=== PATIENT | female | born 1955 | race African-American/Black ===

== ENCOUNTER 2024-01-16 07:14 | Observation (INO) | payer MEDICARE ==
[~2024-01-16] VITALS: Ht 170.2 cm; Wt 79.4 kg
[2024-01-16] MEDS ORDERED: SODIUM CHLORIDE FLUSH 10 ML SYR IV PRN (07:30)
[2024-01-16] MEDS: ASPIRIN 81 MG CHEW TAB PO ONE ×2 (07:51→12:14)
[2024-01-16] MEDS: ONDANSETRON HCL INJ 2MG/ML 2ML 2 MG/ML VIAL IV STA (07:58)
[2024-01-16 08:09] LABS: BASOPHILS # (AUTO) 0.1 (0.0-0.1); BASOPHILS % 0.8 % (0.0-1.0); EOSINOPHILS # (AUTO) 0.1 (0.0-0.4); EOSINOPHILS % 1.4 % (0.0-6.0); HEMATOCRIT 43.5 % (34.2-44.1); HEMOGLOBIN 13.6 g/dL (12.0-16.0); LYMPHOCYTES # (AUTO) 1.5 (1.0-3.2); MEAN CORPUSCULAR HEMOGLOBIN 23.4 pg (28-32); MEAN CORPUSCULAR HGB CONC 31.3 g/dL (31-35); MEAN CORPUSCULAR VOLUME 74.9 fL (81-99); MONOCYTES # (AUTO) 0.4 (0.2-0.8); MONOCYTES % 6.1 % (4.4-11.3); NEUTROPHILS # (AUTO) 4.3 (2.1-6.9); NEUTROPHILS % 67.2 % (38.7-80.0); PLATELET COUNT 258 x10e3/uL (140-360); RED BLOOD COUNT 5.81 x10e6/uL (3.6-5.1); RED CELL DISTRIBUTION WIDTH 17.2 % (11.7-14.4); WHITE BLOOD COUNT 6.41 x10e3/uL (4.8-10.8)
[2024-01-16 08:48] LABS: ALBUMIN 4.1 g/dL (3.5-5.0); ALBUMIN/GLOBULIN RATIO 1.2 (0.8-2.0); ANION GAP 20.3 mmol/L (8-16); BILIRUBIN,TOTAL 0.3 mg/dL (0.2-1.2); CALCIUM 9.8 mg/dL (8.4-10.2); CREATININE, SERUM 2.46 mg/dL (0.57-1.11); TOTAL PROTEIN 7.5 g/dL (6.5-8.1)
[2024-01-16 08:51] LABS: POTASSIUM 5.3 mmol/L (3.5-5.1)
[2024-01-16 08:54] LABS: TROPONIN I 0.003 ng/mL (0-0.300)
[2024-01-16] MEDS: SODIUM CHLORIDE 0.9% 1000ML 1,000 ML IV SCH (09:45)
[2024-01-16] MEDS ORDERED: HALOPERIDOL LACTATE 5 MG/ML VIAL IM PRN (09:45)
[2024-01-16] MEDS: INSULIN REGULAR, HUMAN 100 UNIT/1 ML IV ONE (10:41)
[2024-01-16] MEDS: CALCIUM GLUC 1 G/50 ML NACL 100 ML IV ONE (10:42)
[2024-01-16] MEDS: DEXTROSE 50% SYRINGE 50 ML IV STA (10:43)
[2024-01-16] MEDS: SODIUM CHLORIDE 0.9% 1000ML 1,000 ML IV ONE (10:43)
[2024-01-16] MEDS: Morphine 4mg INJECTION 4 MG/ML INJ IV ONE (10:44)
[2024-01-16] MEDS: SODIUM BICARBONATE 8.4% INJ 50 ML SYR IV STA (10:44)
[2024-01-16 13:59] VITALS: PULSE 66; RESP 20; TEMP 98
[2024-01-16 16:00] VITALS: BP 135/75; PULSE 75; RESP 17; TEMP 97.8; O2SAT 100
[2024-01-16 17:33] LABS: TROPONIN I 0.001 ng/mL (0-0.300)
[2024-01-16 17:56] VITALS: BP 135/75; PULSE 75; RESP 17; TEMP 97.8; O2SAT 100
[2024-01-16 18:07] VITALS: BP 135/75; PULSE 75; RESP 17; TEMP 97.8; O2SAT 100
[2024-01-16] MEDS ORDERED: AMOX TR-K CLV1 EAC2 PO (18:17)
[2024-01-16] MEDS ORDERED: PREDNISONE10 MG PO (18:17)
[2024-01-16] MEDS ORDERED: GABAPENTIN300 MG (18:17)
[2024-01-16] MEDS ORDERED: ATORVASTATIN CA80 MG PO (18:17)
[2024-01-16] MEDS ORDERED: NIFEDIPINE ER90 M1 PO (18:17)
[2024-01-16] MEDS ORDERED: IPRAT-ALBUT 0.5-3 ML (18:17)
[2024-01-16] MEDS ORDERED: NEBIVOLOL HCL10 MG PO (18:17)
[2024-01-16] MEDS ORDERED: PANTOPRAZOLE SO20 MG PO (18:17)
[2024-01-16] MEDS ORDERED: LISINOPRIL20 MG (18:17)
[2024-01-16] MEDS ORDERED: EZETIMIBE10 MG PO (18:17)
[2024-01-16] MEDS ORDERED: ALBUTEROL (18:17)
[2024-01-16] MEDS ORDERED: FLUOROMETHOLONE5 ML (18:17)
[2024-01-16] MEDS ORDERED: NITROGLYCERIN0.4 MG SL (18:17)
[2024-01-16] MEDS ORDERED: RESTASIS1 EACH (18:17)
[2024-01-16] MEDS ORDERED: ESCITALOPRAM OXA5 MG PO (18:17)
[2024-01-16 20:00] VITALS: BP 153/67; PULSE 64; RESP 19; TEMP 98; O2SAT 100
[2024-01-16] MEDS ORDERED: VITAMIN D350 MCG PO (20:38)
[2024-01-16 21:00] VITALS: BP 153/67; PULSE 64; RESP 19; TEMP 98; O2SAT 100
[2024-01-16] MEDS ORDERED: ULTRAM 50MG50 MG PO (21:15)
[2024-01-16] MEDS ORDERED: GUAIFENESIN E1200 MG PO (21:15)
[2024-01-16] MEDS ORDERED: NEURONTIN100 MG PO (21:15)
[2024-01-16] MEDS ORDERED: LISINOPRIL10 MG PO (21:15)
[2024-01-16] MEDS ORDERED: VENTOLIN HFA18 GM PO (21:24)
[2024-01-17] VITALS: BP 137/63; PULSE 59; RESP 19; TEMP 97.7; O2SAT 99
[2024-01-17] MEDS: Morphine 2mg Syringe 2 MG/ML SYR IV PRN (00:24)
[2024-01-17] MEDS: ONDANSETRON HCL INJ 2MG/ML 2ML 2 MG/ML VIAL IV PRN (00:24)
[2024-01-17 01:08] LABS: BASOPHILS % 0.4 % (0.0-1.0); EOSINOPHILS # (AUTO) 0.1 (0.0-0.4); EOSINOPHILS % 1.3 % (0.0-6.0); HEMATOCRIT 38.4 % (34.2-44.1); HEMOGLOBIN 11.7 g/dL (12.0-16.0); LYMPHOCYTES % 30.2 % (18.0-39.1); MEAN CORPUSCULAR HEMOGLOBIN 23.1 pg (28-32); MEAN CORPUSCULAR HGB CONC 30.5 g/dL (31-35); MEAN CORPUSCULAR VOLUME 75.7 fL (81-99); MONOCYTES # (AUTO) 0.5 (0.2-0.8); MONOCYTES % 7.8 % (4.4-11.3); NEUTROPHILS % 60.2 % (38.7-80.0); PLATELET COUNT 238 x10e3/uL (140-360); RED BLOOD COUNT 5.07 x10e6/uL (3.6-5.1); RED CELL DISTRIBUTION WIDTH 16.2 % (11.7-14.4); WHITE BLOOD COUNT 6.69 x10e3/uL (4.8-10.8)
[2024-01-17 01:33] LABS: ALBUMIN/GLOBULIN RATIO 1.3 (0.8-2.0); ANION GAP 10.1 mmol/L (8-16); BILIRUBIN,TOTAL 0.2 mg/dL (0.2-1.2); CREATININE, SERUM 1.51 mg/dL (0.57-1.11)
[2024-01-17 01:37] LABS: TROPONIN I 0.008 ng/mL (0-0.300)
[2024-01-17 02:13] LABS: ALBUMIN 3.1 g/dL (3.5-5.0); CALCIUM 8.2 mg/dL (8.4-10.2); POTASSIUM 4.1 mmol/L (3.5-5.1); TOTAL PROTEIN 5.4 g/dL (6.5-8.1)
[2024-01-17 08:05] VITALS: BP 152/80; PULSE 77; RESP 18; TEMP 98.1; O2SAT 95
[2024-01-17 09:31] VITALS: BP 152/80; PULSE 77; RESP 18; TEMP 98.1; O2SAT 95
[2024-01-17 10:07] VITALS: PULSE 77
[2024-01-17] MEDS: NIFEDIPINE CR 30 MG TAB PO ONE (10:07)
[2024-01-17 10:08] VITALS: BP 152/80
[2024-01-17] MEDS: NEBIVOLOL 10 MG TAB PO SCH (10:08)
== END 2024-01-17 10:30 | disposition home or self-care (01) ==
LOC: ER 07:19 → ERHOLD 09:39 → MED/SURG2 14:46
PROVIDERS: ADMIT Internal Medicine; ATTEND Internal Medicine
DX: R07.89 Other chest pain (principal); N17.9 Acute kidney failure, unspecified; I12.9 Hypertensive chronic kidney disease with stage 1 through stage 4 chronic kidney disease, or unspecified chronic kidney disease; E11.22 Type 2 diabetes mellitus with diabetic chronic kidney disease; N18.9 Chronic kidney disease, unspecified; F10.20 Alcohol dependence, uncomplicated; Y90.5 Blood alcohol level of 100-119 mg/100 ml; I25.10 Atherosclerotic heart disease of native coronary artery without angina pectoris; I25.2 Old myocardial infarction; E78.5 Hyperlipidemia, unspecified; G20.A1 Parkinson's disease without dyskinesia, without mention of fluctuations; F31.9 Bipolar disorder, unspecified; F20.9 Schizophrenia, unspecified; F41.9 Anxiety disorder, unspecified; Z79.899 Other long term (current) drug therapy
CPT/HCPCS: 36415 ×2; 71045; 80053 ×2; 80320; 82550 ×2; 82948; 83880; 84484 ×2; 85025 ×2; 93005; 94760; 99284; G0378 ×2; J2270 ×2; J2405 ×2; J7030 ×2; J7799